=== PATIENT | female | born 1940 | race Caucasian/White ===

== ENCOUNTER 2023-12-05 11:52 | Emergency (ER) | payer MEDICARE ==
[~2023-12-05] VITALS: Ht 162.6 cm; Wt 56.7 kg
[2023-12-05 12:12] VITALS: O2SAT 99
[2023-12-05] MEDS ORDERED: NAPR-679 MT (14:56)
[2023-12-05] MEDS: ACETAMINOPHEN 325MG TABLET PO STA (15:17)
[2023-12-05 15:18] VITALS: BP 121/68; PULSE 71; RESP 16; TEMP 98.6
== END 2023-12-05 15:21 | disposition home or self-care (01) ==
LOC: ER 11:52
DX: S90.111A Contusion of right great toe without damage to nail, initial encounter (principal); W18.30XA Fall on same level, unspecified, initial encounter; Y93.89 Activity, other specified; Y92.89 Other specified places as the place of occurrence of the external cause; Y99.8 Other external cause status
CPT/HCPCS: 73630; 99283